=== PATIENT | male | born 1955 | race Caucasian/White ===

== ENCOUNTER 2017-11-22 07:49 | Day surgery (SDC) | payer MEDICARE, MEDICAID ==
[2017-11-21 14:46] VITALS: BMI 37.7
--- NOTE | 2017-11-22 12:15 | OP ---
DATE OF PROCEDURE: 11/22/2017 GI ENDOSCOPY NOTE SURGEON: Eric Byrne M.D. TALENT PARTNER SURGEON: None. PROCEDURES: 1. Esophagogastroduodenoscopy, diagnostic. 2. Colonoscopy with polypectomy. INDICATIONS: 1. Generalized abdominal pain. 2. Nausea. 3. Change in bowel habits. 4. No prior colonoscopy. MEDICATIONS: See anesthesia record. FINDINGS: After discussion of the risks, benefits and alternatives of the procedure, informed consen t was obtained and witnessed. Pre-endoscopic cardiopulmonary examination was satisfactory. Timeout was performed before sedation was achieved. Sedation was achieved with anesthesia assistance in the endoscopy unit. A Pentax adult upper endoscope was placed into the oropharynx and passed through the cricopharyngeus under direct visualization. The esophageal mucosa appeared normal throughout with a normal-appearing Z-line. The endoscope was then passed into the stomach. Forward and retroflexed v iews of the entire gastric mucosa were obtained. The gastric mucosa appeared normal throughout. The endoscope was then advanced through the pylorus and into the first and second portions of the duoden um, which also appeared normal. The upper endoscope was then completely withdrawn and the patient wa s repositioned. Digital rectal exam was performed which was unremarkable. A Pentax adult colonoscope was inserted in to the anus and passed forward to the cecum in the usual fashion. The cecal base was identified by t he appendiceal orifice as well as the ileocecal valve. The terminal ileum was intubated and the ilea l mucosa appeared normal. The colonoscope was then slowly withdrawn in a gradual and circumferential manner with careful examination of the entire colonic mucosa. The quality of the prep was good. Th ere is scattered diverticulosis throughout the transverse colon and left colon. In the ascending col on, there were 2 sessile polyps measuring from 3-4 mm in size. These were completely removed with ho t snare and retrieved for pathology. In the descending colon, there were 3 polyps measuring from 5-7 mm in size. These were all completely removed with hot snare and retrieved for pathology. In the s igmoid colon, there was a polyp measuring 2 mm. This was completely removed with cold snare and retr ieved for pathology. In the rectum, there was another sessile polyp measuring 1-2 mm. This was abla william with hot snare tip. Retroflexion in the rectum was unremarkable. The colonoscope was then compl etely withdrawn and the patient allowed to recover. The patient tolerated the procedure well. There were no immediate post-procedure complications. IMPRESSION: 1. Normal esophagogastroduodenoscopy. 2. Scattered diverticulosis throughout the colon. 3. Two polyps in the ascending colon, removed with hot snare and retrieved for pathology. 4. Three polyps in the descending colon, removed with hot snare and retrieved for pathology. 5. Single sigmoid colon polyp, removed with cold snare and retrieved for pathology. 6. Single small rectal polyp, ablated with hot snare tip. 7. No endoscopic of inflammatory disease. RECOMMENDATIONS: 1. Regular diet. 2. Follow up in clinic in 2-3 weeks. 3. Follow up pathology results on the colon polyps, repeat surveillance colonoscopy to be determined based on pathology results.
[2017-11-22] MEDS ORDERED: ePHEDrine/0.9% NaCl/PF SYRINGE 50 mg/10 ml ONE (14:16)
[2017-11-22] MEDS ORDERED: PROPOFOL 200 MG/20 ML VIAL ONE (14:16)
[2017-11-22] MEDS ORDERED: PHENYLEPHRINE-NS 100 MCG/ML 10 ML SYRINGE ONE (14:16)
== END 2017-11-22 13:06 ==
LOC: SDC 07:49
PROVIDERS: ATTEND Internal Medicine
PROC: 0DBK8ZX Excision of Ascending Colon, Via Natural or Artificial Opening Endoscopic, Diagnostic (ICD-10-PCS; principal; 2017-11-22)
PROC: 0DBN8ZX Excision of Sigmoid Colon, Via Natural or Artificial Opening Endoscopic, Diagnostic (ICD-10-PCS; 2017-11-22)
PROC: 0DBP8ZX Excision of Rectum, Via Natural or Artificial Opening Endoscopic, Diagnostic (ICD-10-PCS; 2017-11-22)
PROC: 0DBM8ZX Excision of Descending Colon, Via Natural or Artificial Opening Endoscopic, Diagnostic (ICD-10-PCS; 2017-11-22)
PROC: 0DJ08ZZ Inspection of Upper Intestinal Tract, Via Natural or Artificial Opening Endoscopic (ICD-10-PCS; 2017-11-22)
DX: K63.5 Polyp of colon (principal); D12.4 Benign neoplasm of descending colon; D12.5 Benign neoplasm of sigmoid colon; R10.84 Generalized abdominal pain; R11.0 Nausea; K57.30 Diverticulosis of large intestine without perforation or abscess without bleeding; E11.9 Type 2 diabetes mellitus without complications; E78.5 Hyperlipidemia, unspecified; F29 Unspecified psychosis not due to a substance or known physiological condition; G30.9 Alzheimer's disease, unspecified; F02.80 Dementia in other diseases classified elsewhere, unspecified severity, without behavioral disturbance, psychotic disturbance, mood disturbance, and anxiety; I48.0 Paroxysmal atrial fibrillation; I11.0 Hypertensive heart disease with heart failure; I50.30 Unspecified diastolic (congestive) heart failure; F31.9 Bipolar disorder, unspecified; E66.9 Obesity, unspecified; Z68.37 Body mass index [BMI] 37.0-37.9, adult; Z79.4 Long term (current) use of insulin; Z79.82 Long term (current) use of aspirin; Z79.899 Other long term (current) drug therapy; Z98.890 Other specified postprocedural states
CPT/HCPCS: 36416; 88305; J2704

== ENCOUNTER 2019-04-18 21:27 | Inpatient (IN) | payer MEDICARE, MEDICAID ==
[~2019-04-18 21:27] MED LIST: ISOVUE-370 76%-LOCM 1 ML ONE
[2019-04-18 23:22] LABS: #Lymphocytes 1.2 thou/uL (1.20-3.40); #Monocytes 0.5 thou/uL (0.11-0.59); #Neutrophils 6.4 thou/uL (1.40-6.50); %Basophils 0.2 % (0.0-1.0); %Eosinophils 0.3 % (0.0-10.0); %Lymphocytes 14.3 % (21.0-51.0); %Monocytes 5.6 % (0.0-10.0); %Neutrophils 79.6 % (42.0-75.0); Hemoglobin 12.1 g/dL (14.0-18.0); Mean Corpuscular HGB CONC 32.4 g/dL (32.0-36.0); Mean Corpuscular Hemoglobin 30.3 pg (27.0-31.0); Mean Corpuscular Volume 93.3 fL (78.0-98.0); Platelet Count 207 thou/uL (130-400); Red Blood Cell (RBC) Count 3.99 mill/uL (4.70-6.10); White Blood Cell (WBC) Count 8.1 thou/uL (4.8-10.8)
[2019-04-18] MEDS ORDERED: Promethazine HCl 25 MG/ML VIAL ONE (23:35)
[2019-04-18 23:43] LABS: ALT (SGPT) 23 U/L (8-55); AST (SGOT) 18 U/L (5-34); Alkaline Phosphatase 81 U/L (40-150); Anion Gap 16 mmol/L (10-20); BUN (Urea Nitrogen) 15 mg/dL (8.4-25.7); Bilirubin, Total 0.4 mg/dL (0.2-1.2); Calc. Creatinine Clearance 0 mL/min (70-130); Calcium 9.7 mg/dL (7.8-10.44); Carbon Dioxide 26 mmol/L (23-31); Chloride 100 mmol/L (98-107); Estimated GFR-MDRD 84; Globulin 3.2 g/dL (2.4-3.5); Glucose 203 mg/dL (80-115); Lipase 21 U/L (8-78); Potassium 4.5 mmol/L (3.5-5.1); Protein, Total 7.2 g/dL (5.8-8.1); Sodium 137 mmol/L (136-145)
[2019-04-18 23:51] LABS: Bilirubin Negative (Negative); Blood, Urine Negative (Negative); Clarity Clear (Clear); Glucose, Urine (Dipstick) 100 mg/dL (Negative); Leukocyte Negative Leu/uL (Negative); Nitrite Negative (Negative); Protein, Urine (Dipstick) Negative (Neg-Trace); Urobilinogen Normal mg/dL (Less than 2)
[2019-04-19] MEDS ORDERED: Labetalol HCl 100 MG/20 ML VIAL ONE (00:10)
[2019-04-19] MEDS ORDERED: diphenhydrAMINE 50 MG/ML VIAL ONE (01:53)
[2019-04-19] MEDS ORDERED: Haloperidol Lactate 5 MG/ML VIAL ONE (01:53)
[2019-04-19 03:29] LABS: Lactic Acid 4.8 mmol/L (0.5-2.2)
--- NOTE | 2019-04-19 04:13 | PDOC.FPRHP ---
- History of Present Illness Chief Complaint: Nausea/Vomiting History of Present Illness: 63 yo M w/hx of dementia, DM2, pAfib, HFpEF, and HTN, here from NH with complaint from [place] staff of 1 day of n/v. At the time of this H&P no staff or family was available for history and pt was unable to answer questions reliably. All hx is from chart review. Vomiting apparently begin during the afternoon of 04/18 and was treated with multiple doses of Zofran, however this was unable to control his symptoms. There is no hx of fever, abd pain, diarrhea , or constipation. In the ED, the patient was noted to be quite hypertensive and was treated with labetalol. Labs were largely unremarkable with the exception of an elevated lactate which was treated with IV fluids. PCP Dr. Shelby - Allergies/Adverse Reactions Allergies Allergy/AdvReac Type Severity Reaction Status Date / Time No Known Drug Allergies Allergy Verified 11/21/17 14:46 - Home Medications Medication Instructions Recorded Confirmed Type Atorvastatin Calcium [Lipitor] 40 mg PO HS #30 tab 06/02/15 04/19/19 Rx Lisinopril [Zestril] 20 mg PO DAILY #30 tab 06/02/15 04/19/19 Rx Donepezil HCl [Aricept] 10 mg PO HS 05/19/16 04/19/19 History Saccharomyces boulardii [Florastor] 250 mg PO DAILY #0 cap 05/23/16 04/19/19 Rx NIFEdipine [Procardia XL] 30 mg PO DAILY #0 tab 05/26/16 04/19/19 Rx Aspirin Chewable 81 mg PO DAILY 11/21/17 04/19/19 History Citalopram Hydrobromide 20 mg PO DAILY 11/21/17 04/19/19 History [Citalopram HBr] Lorazepam [Ativan] 0.5 mg PO TID PRN 11/21/17 04/19/19 History Metoprolol Tartrate [Lopressor] 25 mg PO BID 11/21/17 04/19/19 History Omeprazole 40 mg PO DAILY 11/21/17 04/19/19 History cloNIDine [Catapres] 0.1 mg PO PRN PRN 11/21/17 04/19/19 History NPH, Human Insulin Isophane 37 unit SC BID 04/19/19 04/19/19 History [Humulin N] Sertraline HCl [Zoloft] 200 mg PO DAILY 04/19/19 04/19/19 History risperiDONE [RisperDAL] 0.25 mg PO HS 04/19/19 04/19/19 History traZODone HCl [Trazodone HCl] 50 mg PO QPM 04/19/19 04/19/19 History Comments: Med Rec per clinic note sent from [place] with patient - History PMHx: pAfib DM2 HFpEF Dementia Adrenal Mass HTN HLD PSHx: None FHx: unk Social: unk - Review of Systems ROS unobtainable: due to mental status Gastrointestinal: reports: nausea, vomiting (per NH staff) - Vital signs BP: 163/99, Pulse: 96, Resp: 14, Temp: 98.1 (Oral), Pain: 0, O2 sat: 98 on 2L Oxygen - Physical Exam Constitutional: NAD, other (Appears confused. Will only answer yes/no questions. ) HEENT: normocephalic and atraumatic, EOMI, no scleral icterus, grossly normal vision, grossly normal hearing Neck: trachea midline Heart: RRR, normal S1/S2, no murmurs/rubs/gallops Lungs: CTAB, no respiratory distress Abdomen: soft, non-tender, bowel sounds present Musculoskeletal: normal tone Neurological: no focal deficit, CN II-XII intact Skin: good turgor -Skin: Ulcers on both feet Heme/Lymphatic: no unusual bruising or bleeding -Psychiatric: A&O self and place. Does not answer all questions appropriately. Often trails off in the middle of a sentence or will not answer questions asked. FMR H&P: Results - Labs Result Diagrams: 04/18/19 23:07 04/18/19 23:07 Lab results: WBC 8.1 thou/uL (4.8-10.8) 04/18/19 23:07 Hgb 12.1 g/dL (14.0-18.0) L 04/18/19 23:07 Hct 37.2 % (42.0-52.0) L 04/18/19 23:07 MCV 93.3 fL (78.0-98.0) 04/18/19 23:07 Plt Count 207 thou/uL (130-400) 04/18/19 23:07 Neutrophils % 79.6 % (42.0-75.0) H 04/18/19 23:07 Sodium 137 mmol/L (136-145) 04/18/19 23:07 Potassium 4.5 mmol/L (3.5-5.1) 04/18/19 23:07 Chloride 100 mmol/L (98-107) 04/18/19 23:07 Carbon Dioxide 26 mmol/L (23-31) 04/18/19 23:07 BUN 15 mg/dL (8.4-25.7) 04/18/19 23:07 Creatinine 0.92 mg/dL (0.7-1.3) 04/18/19 23:07 Glucose 203 mg/dL (80-115) H 04/18/19 23:07 Lactic Acid 4.8 mmol/L (0.5-2.2) H* 04/19/19 02:59 Calcium 9.7 mg/dL (7.8-10.44) 04/18/19 23:07 Total Bilirubin 0.4 mg/dL (0.2-1.2) 04/18/19 23:07 AST 18 U/L (5-34) 04/18/19 23:07 ALT 23 U/L (8-55) 04/18/19 23:07 Alkaline Phosphatase 81 U/L (40-150) 04/18/19 23:07 Serum Total Protein 7.2 g/dL (5.8-8.1) 04/18/19 23:07 Albumin 4.0 g/dL (3.4-4.8) 04/18/19 23:07 Lipase 21 U/L (8-78) 04/18/19 23:07 Urine Ketones Trace mg/dL (Negative) A 04/18/19 23:30 Urine Blood Negative (Negative) 04/18/19 23:30 Urine Nitrite Negative (Negative) 04/18/19 23:30 Ur Leukocyte Esterase Negative Miguel/uL (Negative) 04/18/19 23:30 Laboratory Tests 04/18/19 04/19/19 23:07 02:59 Lactic Acid 4.6 H* 4.8 H* - Radiology Interpretation CT scan - head Status: image reviewed by me Additional comment: No acute bleed. No midline shift. Enlarged ventricles. CT scan - abdomen Status: image reviewed by me Additional comment: No free air or fluid. GB appears normal in size. No hydronephrosis or stone noted. FMR H&P: A/P - Problem List (1) Lactic acid acidosis Current Visit: Yes Status: Acute Code(s): E87.2 - ACIDOSIS (2) Intractable nausea and vomiting Current Visit: Yes Status: Acute Code(s): R11.2 - NAUSEA WITH VOMITING, UNSPECIFIED (3) HLD (hyperlipidemia) Current Visit: Yes Status: Chronic Code(s): E78.5 - HYPERLIPIDEMIA, UNSPECIFIED (4) Normocytic anemia Current Visit: Yes Status: Chronic Code(s): D64.9 - ANEMIA, UNSPECIFIED (5) Dementia Current Visit: No Status: Chronic Code(s): F03.90 - UNSPECIFIED DEMENTIA WITHOUT BEHAVIORAL DISTURBANCE (6) Diabetes mellitus type 2 in obese Current Visit: No Status: Chronic Code(s): E11.9 - TYPE 2 DIABETES MELLITUS WITHOUT COMPLICATIONS; E66.9 - OBESITY, UNSPECIFIED (7) Hypertension Current Visit: No Status: Chronic Code(s): I10 - ESSENTIAL (PRIMARY) HYPERTENSION (8) Type 2 diabetes mellitus Current Visit: No Status: Chronic - Plan 1. Intractable nausea and vomiting - most likely related infectious gastroenteritis. Abdominal CT does not show enlarged GB or bowel obstruction. Mesenteric ischemia is within the differential however unlikely dt not complaining of pain. Radiology read currently pending. - Continue IVF and nausea control with PRN Zofran 2. Lactic acidosis - most likely related to dehydration related to n/v - continue to trend. - No current signs/symptoms of sepsis 3. DM2 - most recent med list is from 2018. Plan to call PCP in am for UTD list - [facility] accucheck. - Mild SSI - Low carb diet 4. HTN - continue home meds 5. HLD - continue home statin 6. Dementia - continue home meds - fall precautions PPX Lovenox Diet Low carb Code Full Dispo: currently stable with controlled symptoms. Good prognosis for return to baseline function at this time. Likely length of hospitalization greater than 48 hours
[2019-04-19] MEDS ORDERED: Ondansetron ODT 4 MG TAB PO PRN (05:21)
[2019-04-19] MEDS ORDERED: Ondansetron PF 4 MG/2 ML Vial IVP PRN (05:21)
[2019-04-19] MEDS ORDERED: Dextrose 5% in Water 1,000 ML IV PRN (05:21)
[2019-04-19] MEDS ORDERED: Dextrose 50% Abboject 50 ML SYRINGE SLOW IVP PRN (05:21)
[2019-04-19] MEDS ORDERED: Senokot S 8.6-50 MG TAB PO PRN (05:21)
[2019-04-19] MEDS: Lactated Ringer's 1,000 ML IV SCH ×3 (05:22→20:34)
[2019-04-19] MEDS: HumaLOG 300 UNITS/3 ML VIAL SC PRN ×2 (06:06→20:37)
[2019-04-19 06:46] VITALS: BMI 36.2
[2019-04-19 07:39] LABS: Lactic Acid 4.6 mmol/L (0.5-2.2)
--- NOTE | 2019-04-19 08:34 | CT ---
PRELIMINARY REPORT/[facility]/EMERGENCY AFTER HOURS PROCEDURE: EXAM: CT Abdomen and Pelvis With Contrast EXAM DATE/TIME: 04/19/2019 12:56 AM CLINICAL HISTORY: 63 years old, male; Acute; Patient HX: PT reports vomiting for 1-2 days, abdominal pain. PT denies di arrhea, HX kidney problems, HX uti's. PT doesn't remember if he has had a fever. TECHNIQUE: Imaging protocol: Axial computed tomography images of the abdomen and pelvis with intravenous contras t. COMPARISON: No relevant prior studies available. FINDINGS: Lungs: Mild bibasilar subsegmental atelectasis. Liver: No liver masses. Gallbladder and bile ducts: Normal appearance of the gallbladder. No ductal dilation. Pancreas: No pancreatic mass or ductal dilation. Spleen: No splenic masses. Adrenals: There is a 3.5 cm left adrenal gland high density nodule. Kidneys and ureters: No enhancing mass or hydronephrosis. Subcentimeter hypodensities superior pole o f the left kidney that is too small to characterize. Stomach and bowel: Colonic diverticulosis without evidence of acute diverticulitis. No evidence of ob struction or bowel wall thickening. Appendix: Normal appendix. Intraperitoneal space: No free air or free fluid. Vasculature: Mild atherosclerosis of the aorta without aneurysm. Lymph nodes: No lymphadenopathy. Bladder: Normal bladder. Reproductive: Normal. Bones/joints: No suspicious bone lesions. Soft tissues: There is a 1.4 cm superficial subcutaneous nodule right anterior lower chest most likely a sebaceous cyst. Tiny fat containing umbilical hernia. Small right fat containing inguinal he rnia. IMPRESSION: 1. No acute findings in the abdomen or pelvis. No bowel obstruction or appendicitis. 2. Indeterminate left adrenal gland nodule measuring 3.5 cm. No priors are available for comparison. Defer to on-site Radiologist for follow-up recommendations. Thank you for allowing us to participate in the care of your patient. Dictated and Authenticated by: Astrid Chowdhury MD 04/19/2019 1:36 AM Central Time ([place] & [place]) FINAL REPORT: CT ABDOMINAL PELVIS WITH CONTRAST: HISTORY: Vomiting. Abdominal pain. COMPARISON: CT abdomen 2016. FINDINGS: New T12 compression deformity which does extend to the posterior endplate is new from 2016. Similar s ized left adrenal mass. IMPRESSION: Findings and impression are concordant with the preliminary report. A dedicated adrenal protocol CT o r MRI in 6 months recommended. Transcribed Date/Time: 04/19/2019 8:47 AM
--- NOTE | 2019-04-19 08:47 | CT ---
PRELIMINARY REPORT/[facility]/EMERGENCY AFTER HOURS PROCEDURE: EXAM: CT Head Without Contrast EXAM DATE/TIME: 04/19/2019 2:12 AM CLINICAL HISTORY: 63 years old, male; Altered mental status/memory loss; Patient HX: PT reports vomiting for 1-2 days, abdominal pain. PT denies diarrhea, HX kidney problems, HX uti's. PT doesn't remember if he has had a fever TECHNIQUE: Imaging protocol: Axial computed tomography images of the head without contrast. COMPARISON: No relevant prior studies available. FINDINGS: Brain: No hemorrhage. No major vessel vascular territory infarct. No extra-axial fluid collection. There is diffuse cerebral atrophy with compensatory ventricular dilation. Periventricular and subcortical white matter hypodensities consistent with chronic small vessel ischemic changes. Ventricles: No hydrocephalus. Bones/joints: No acute fracture. Sinuses: Visualized sinuses are unremarkable. No fluid levels. Mastoid air cells: Visualized mastoid air cells are well aerated. No mastoid effusion. Soft tissues: Unremarkable. IMPRESSION: No acute intracranial abnormality. Thank you for allowing us to participate in the care of your patient. Dictated and Authenticated by: Astrid Chowdhury MD 04/19/2019 2:26 AM Central Time ([place] & [place]) FINAL REPORT: Emergency after-hours study CT BRAIN NONCONTRAST: DATE: 04/19/2019 Time: 2:12 AM HISTORY: 63-year-old male with nausea and vomiting. Dr. Diallo discussed the discrepancy with the preliminary report to ER charge nurse Viet Ng at 8:46 AM on 04/19/2019. The recommendation for neurosurgery consultation on a nonemergent basis, was discussed. COMPARISON: 05/19/2016 CT and 05/28/2015 MRI. FINDINGS: There is moderate dilation of the lateral ventricles, slightly greater than on the prior CT. There is moderate dilation of the third ventricle. The fourth ventricle is mildly dilated. There are diffuse, confluent hypodensities throughout the periventricular and deep cerebral white matter, (bhavani na radiata and centrum semiovale), which has worsened. At least some of this represents chronic ischemic white matter changes due to microvascular atherosclerosis. However, the MRI of 2014 demonstr ated that some of this was suspicious for transependymal migration of CSF. There is no midline shift. No mass effect. No acute intra-axial or extra-axial hemorrhage. Calvarium is intact. Disagreement with preliminary report by [facility]. IMPRESSION: Ventriculomegaly, suspicious for a communicating obstructive hydrocephalus such as normal pressure hy drocephalus. Recommend neurosurgery consultation on a nonemergent basis. Transcribed Date/Time: 04/19/2019 9:51 AM
[2019-04-19] MEDS ORDERED: Citalopram 20 MG TAB PO SCH (09:00)
[2019-04-19] MEDS ORDERED: Metoprolol Tartrate 25 MG TAB PO SCH (09:00)
[2019-04-19] MEDS ORDERED: NPH, Human Insulin Isophane 300 UNIT/3 ML VIAL SC SCH (09:00)
--- NOTE | 2019-04-19 10:04 | CT ---
CTA Angio Abd Pelvis W WO Con History: Mesenteric ischemia. Comparison: CT abdomen and pelvis same day Findings: CT angiogram of the abdomen and pelvis performed after the intravenous administration of co ntrast. 3-D rendering provided. Calcified infrahilar lymph nodes. Scarring lung bases. No pericardial effusion. The celiac trunk is p atent. Superior mesenteric artery is patent. Distal branches of the superior mesenteric artery are patent. Gastroduodenal artery is patent Renal arteries are patent. Common iliac arteries are patent. There is residual contrast within the ur inary bladder. Inferior mesenteric artery is patent. Mild diverticular disease sigmoid colon. The appendix is visualized and is normal. No retroperitoneal periaortic adenopathy. Similar appearance left adrenal mass. Impression: Patent small bowel and colonic vasculature. No CT evidence for mesenteric ischemia. No se condary findings of mesenteric ischemia. Vessels are patent, no free fluid, no mesenteric infiltration, and normal bowel wall enhancement. Please see the CT examination from earlier today for additional findings.
[2019-04-19] MEDS: NIFEdipine XL 30 MG TAB PO SCH (12:15)
[2019-04-19] MEDS: Saccharomyces boulardii 250 MG CAP PO SCH (12:15)
[2019-04-19] MEDS: Aspirin Chewable 81 MG TAB PO SCH (12:17)
[2019-04-19] MEDS: Enoxaparin Sodium 30 MG/0.3 ML SYRINGE SC SCH (12:17)
[2019-04-19] MEDS: Lisinopril 20 MG TAB PO SCH (12:17)
[2019-04-19] MEDS ORDERED: ISOVUE-370 76%-LOCM 1 ML ONE (12:36)
--- NOTE | 2019-04-19 13:29 | HP ---
I have reviewed the history and physical with Dr. Migue Car and discussed the case with him. I agree with his assessment and plan. HISTORY OF PRESENT ILLNESS: Briefly, Mr. Ford is a 63-year-old white male patient with a history of diabetes, dementia, preserved ejection fraction, heart failure, who came in from a custodial with one day of nausea and vomiting. Our initial review shows no evidence of acute abdomen, but he does have a persistent lactic acidosis. PHYSICAL EXAMINATION: VITAL SIGNS: Stable. EARS, NOSE, AND THROAT: No erythema, no exudate. NECK: Supple. CARDIAC: Heart rhythm, regular. No gallop or murmur noted. LUNGS: Clear without rales or wheezes. ABDOMEN: Really unremarkable. He is nontender. There is no distention. There is no guarding, rebound, or rigidity. NEUROLOGIC: No focal deficits. LABORATORY DATA: CBC; white count is 8100, hemoglobin 12.1, hematocrit 37.2. His MCV is 93. Chemistries; sodium 137, potassium 4.5, chloride 100, bicarb 26, anion gap 16, BUN 15, creatinine 0.9, glucose is 203, and his lactic acid is 4.8. Liver enzymes are normal. ASSESSMENT: Lactic acidosis, exact source not yet clear. PLAN: We will go ahead and continue to hydrate the patient. We will perform a CTA of the mesenteric vessels and proceed. Job ID: [id number]
[2019-04-19] MEDS ORDERED: Sodium Chloride 0.9% 0 ML ONE (14:50)
[2019-04-19 16:27] LABS: Lactic Acid 3.9 mmol/L (0.5-2.2)
[2019-04-19] MEDS: Calcium Carbonate 500 MG TAB PO SCH (18:03)
[2019-04-19] MEDS: risperiDONE 0.25 MG TAB PO SCH (20:36)
[2019-04-19] MEDS: Atorvastatin Calcium 40 MG TAB PO SCH (20:36)
[2019-04-19] MEDS: Docusate 100 MG CAP PO SCH (20:36)
[2019-04-19] MEDS: Gabapentin 300 MG CAP PO SCH (20:37)
[2019-04-19] MEDS: Divalproex Sodium DR 500 MG TAB PO SCH (20:37)
[2019-04-19] MEDS: Acetaminophen 325 MG TAB PO PRN (20:37)
[2019-04-19] MEDS ORDERED: traZODone HCl 50 MG TAB PO SCH (21:00)
[2019-04-19] MEDS ORDERED: Donepezil HCl 10 MG TAB PO SCH (21:00)
[2019-04-20] MEDS ORDERED: Lorazepam 2 MG/ML VIAL SLOW IVP SCH (00:45)
[2019-04-20] MEDS: Lactated Ringer's 1,000 ML IV SCH ×6 (05:11→23:58)
[2019-04-20] MEDS: HumaLOG 300 UNITS/3 ML VIAL SC PRN ×3 (05:15→17:54)
[2019-04-20 06:46] LABS: #Basophils 0.1 thou/uL (0.0-0.2); #Eosinphils 0.2 thou/uL (0.0-0.7); #Lymphocytes 2.2 thou/uL (1.20-3.40); #Monocytes 0.6 thou/uL (0.11-0.59); #Neutrophils 3.3 thou/uL (1.40-6.50); %Basophils 0.8 % (0.0-1.0); %Eosinophils 3.4 % (0.0-10.0); %Lymphocytes 34.9 % (21.0-51.0); %Monocytes 8.9 % (0.0-10.0); Hemoglobin 11.7 g/dL (14.0-18.0); Mean Corpuscular HGB CONC 32.5 g/dL (32.0-36.0); Mean Corpuscular Hemoglobin 30.3 pg (27.0-31.0); Mean Corpuscular Volume 93.1 fL (78.0-98.0); Platelet Count 233 thou/uL (130-400); RBC Distribution Width 14.2 % (11.5-14.5); Red Blood Cell (RBC) Count 3.87 mill/uL (4.70-6.10); White Blood Cell (WBC) Count 6.3 thou/uL (4.8-10.8)
[2019-04-20 07:17] LABS: Anion Gap 14 mmol/L (10-20); BUN (Urea Nitrogen) 18 mg/dL (8.4-25.7); Calc. Creatinine Clearance 134 mL/min (70-130); Calcium 9.6 mg/dL (7.8-10.44); Carbon Dioxide 27 mmol/L (23-31); Chloride 102 mmol/L (98-107); Estimated GFR-MDRD 77; Glucose 202 mg/dL (80-115); Potassium 4.2 mmol/L (3.5-5.1); Sodium 139 mmol/L (136-145)
[2019-04-20] MEDS ORDERED: Lactated Ringer's 1,000 ML IV SCH (07:24)
--- NOTE | 2019-04-20 07:30 | PDOC.FM ---
- Subjective Subjective: NAEO. Patient reports that he feels well this AM. Denies any chest or abdominal pain, SOB, N/V/D. - Objective MAR Reviewed: Yes Vital Signs & Weight: Vital Signs (12 hours) Temp Pulse Resp BP Pulse Ox 04/20/19 04:00 98.2 F 73 18 128/83 92 L 04/20/19 00:00 98.5 F 99 20 119/69 93 L 04/19/19 20:00 97.9 F 87 18 162/97 H 94 L Weight Weight 121.109 kg I&O: 04/19/19 04/20/19 04/21/19 06:59 06:59 06:59 Intake Total 1265 Balance 1265 Result Diagrams: 04/20/19 06:28 04/20/19 06:28 Phys Exam - Physical Examination Constitutional: NAD HEENT: moist MMs seborrheic dermatitis in glabellar region of face Neck: supple, full ROM Respiratory: no wheezing, no rales, no rhonchi, clear to auscultation bilateral Cardiovascular: RRR, no significant murmur Gastrointestinal: soft, non-tender, no distention, positive bowel sounds Musculoskeletal: edema present Neurological: non-focal, moves all 4 limbs Psychiatric: normal affect, A&O x 3 Skin: normal turgor, cap refill <2 seconds Deviation from normal: chronic venous stasis changes in B/L LEs Dx/Plan (1) Normal pressure hydrocephalus Code(s): G91.2 - (IDIOPATHIC) NORMAL PRESSURE HYDROCEPHALUS Status: Chronic (2) Bipolar 1 disorder Code(s): F31.9 - BIPOLAR DISORDER, UNSPECIFIED Status: Chronic (3) Intractable nausea and vomiting Code(s): R11.2 - NAUSEA WITH VOMITING, UNSPECIFIED Status: Resolved (4) Lactic acid acidosis Code(s): E87.2 - ACIDOSIS Status: Acute (5) HLD (hyperlipidemia) Code(s): E78.5 - HYPERLIPIDEMIA, UNSPECIFIED Status: Chronic (6) Normocytic anemia Code(s): D64.9 - ANEMIA, UNSPECIFIED Status: Chronic (7) Dementia Code(s): F03.90 - UNSPECIFIED DEMENTIA WITHOUT BEHAVIORAL DISTURBANCE Status: Chronic (8) Diabetes mellitus type 2 in obese Code(s): E11.9 - TYPE 2 DIABETES MELLITUS WITHOUT COMPLICATIONS; E66.9 - OBESITY , UNSPECIFIED Status: Chronic (9) Hypertension Code(s): I10 - ESSENTIAL (PRIMARY) HYPERTENSION Status: Chronic - Plan Plan: Lactic acidosis - Etiology unclear at this point as low suspicion for an acute infection as WBCs & vitals have been WNLs, no overt possible drug-induced reaction on review of meds and mesenteric ischemia ruled out yesterday with an abdominal CTA. ABG, HIV, RPR, Hep C, CPK, and procal pending for this AM. Will also consult nephrology for any additional recommendations. Another possibility is potential malignancy as a 3.5cm hyperintensity nodule was noted on his abd/pelvic CT and was documented in prior scans as well. MRI in 2018 could not r/o malignancy and recommended a CT w/ & w/o contrast. - Will increase IVF rate to 175mL/hr and continue to trend. DM2 - Will call [facility] today to get UTD med list from [facility] as PCP was unsure of current meds at this time. - [facility] accuchecks. - Mild SSI. - Low carb diet. HTN - Will continue home meds HLD - Will continue home statin Dementia - continue home meds - fall precautions Bipolar Disorder - Continue home meds Normal pressure hydrocephalus - Reportedly chronic per patient's PCP. CT head this admission did show slight progression compared to 2016 scan. - Touched base with NS yesterday who recommended close outpatient follow-up. Intractable nausea and vomiting, resolved - PRN Zofran should symptoms return. DVT PPx: Lovenox Diet: Low carb, Code: Full Dispo:
[2019-04-20] MEDS: Divalproex Sodium DR 500 MG TAB PO SCH ×2 (08:26→20:36)
[2019-04-20] MEDS: Lisinopril 20 MG TAB PO SCH (08:26)
[2019-04-20] MEDS: NIFEdipine XL 30 MG TAB PO SCH (08:27)
[2019-04-20] MEDS: Saccharomyces boulardii 250 MG CAP PO SCH (08:27)
[2019-04-20] MEDS: Calcium Carbonate 500 MG TAB PO SCH ×2 (08:28→16:45)
[2019-04-20] MEDS: Aspirin Chewable 81 MG TAB PO SCH (08:28)
[2019-04-20] MEDS: Gabapentin 300 MG CAP PO SCH ×2 (08:29→20:37)
[2019-04-20] MEDS: Enoxaparin Sodium 30 MG/0.3 ML SYRINGE SC SCH (08:29)
[2019-04-20] MEDS: Docusate 100 MG CAP PO SCH ×2 (08:29→20:37)
[2019-04-20 08:57] LABS: Anion Gap 12 mmol/L (10-20); BUN (Urea Nitrogen) 18 mg/dL (8.4-25.7); CK (CPK) 166 U/L (30-200); Calc. Creatinine Clearance 137 mL/min (70-130); Calcium 9.4 mg/dL (7.8-10.44); Carbon Dioxide 29 mmol/L (23-31); Chloride 103 mmol/L (98-107); Estimated GFR-MDRD 79; Glucose 200 mg/dL (80-115); Potassium 4.3 mmol/L (3.5-5.1); Sodium 140 mmol/L (136-145)
[2019-04-20] MEDS ORDERED: Metoprolol Tartrate 25 MG TAB PO SCH (09:00)
[2019-04-20 09:03] LABS: Actual Bicarbonate (HCO3a) 26.7 mEq/L (22-28); Base Excess (BEa) 2.2 mEq/L (-2.0 to +3.0); CO2 Tension 41.3 mmHg (35.0-45.0); Hemoglobin (Hb) 11.5 g/dL (14.0-18.0); Potassium - ABG Lab 3.91 mmol/L (3.70-5.30); pH, Arterial 7.43 (7.35-7.45)
[2019-04-20 09:05] LABS: ALV-art Gradient 30.105 (0-20); Puncture Site LRA
[2019-04-20 09:17] LABS: HIV (1/2) Antibody/Antigen Non-Reactive (NonReactive); Syphilis Antibody Nonreactive (Nonreactive); Syphilis Antibody Index 0.04 S/CO (<1.00 Non-Reactive)
[2019-04-20] MEDS ORDERED: Cosyntropin 250 MCG VIAL SLOW IVP SCH (11:45)
--- NOTE | 2019-04-20 11:52 | PRG ---
DATE OF SERVICE: 04/20/2019 Mr. Ford is resting quietly in bed and he is in no acute distress. He has several interesting findings include what appears to be a type B lactic acidosis. He also has a left adrenal mass, which we are currently investigating. It has been investigated in the past for being a darshana and studies were negative. We will also check some studies regarding the possibility of Dell's and hyperaldosteronism. We will talk with Radiology about further imaging to determine whether this is a malignant mass or an adenoma. The lactic acidosis is still being looked at and we will possibly get an opinion from our renal colleagues. Job ID: [id number]
[2019-04-20 14:17] LABS: Lactic Acid 3.6 mmol/L (0.5-2.2)
[2019-04-20] MEDS: hydrALAZINE 20 MG/ML VIAL SLOW IVP PRN (19:59)
[2019-04-20] MEDS: risperiDONE 0.25 MG TAB PO SCH (20:37)
[2019-04-20] MEDS: Atorvastatin Calcium 40 MG TAB PO SCH (20:37)
[2019-04-20] MEDS: Ketoconazole 2% Cream 15 gm Tube TOP SCH (20:38)
[2019-04-20] MEDS: Lorazepam 2 MG/ML VIAL SLOW IVP PRN (21:22)
[2019-04-20] MEDS ORDERED: Dexamethasone 1 MG TAB PO SCH (23:00)
[2019-04-20] MEDS: Acetaminophen 325 MG TAB PO PRN (23:58)
[2019-04-21] MEDS: Lorazepam 2 MG/ML VIAL SLOW IVP PRN ×2 (01:42→15:20)
[2019-04-21] MEDS: hydrALAZINE 20 MG/ML VIAL SLOW IVP PRN (04:42)
[2019-04-21] MEDS: Lactated Ringer's 1,000 ML IV SCH ×3 (04:42→20:54)
[2019-04-21] MEDS: Acetaminophen 325 MG TAB PO PRN (04:44)
[2019-04-21 05:27] LABS: Bilirubin Negative (Negative); Blood, Urine Negative (Negative); Glucose, Urine (Dipstick) Negative (Negative); Leukocyte Trace (Negative); Nitrite Positive (Negative); Protein, Urine (Dipstick) Negative (Neg-Trace); Urobilinogen 0.2 mg/dL (Less than 2)
[2019-04-21] MEDS: HumaLOG 300 UNITS/3 ML VIAL SC PRN ×3 (05:27→21:02)
[2019-04-21 05:28] LABS: Clarity Clear (Clear)
[2019-04-21 05:33] LABS: Bacteria/HPF 1+ HPF (None Seen); RBC/HPF None Seen HPF (0-3); Squamous Epithelial None Seen HPF (0-3)
[2019-04-21 05:48] LABS: Hemoglobin A1c 8.3 % (4.0-6.0)
[2019-04-21 05:59] LABS: Lactic Acid 3.9 mmol/L (0.5-2.2)
[2019-04-21 06:02] LABS: Anion Gap 17 mmol/L (10-20); BUN (Urea Nitrogen) 16 mg/dL (8.4-25.7); Calc. Creatinine Clearance 124 mL/min (70-130); Calcium 8.8 mg/dL (7.8-10.44); Carbon Dioxide 22 mmol/L (23-31); Chloride 99 mmol/L (98-107); Estimated GFR-MDRD 70; Glucose 212 mg/dL (80-115); Potassium 3.8 mmol/L (3.5-5.1); Sodium 134 mmol/L (136-145)
[2019-04-21 06:19] LABS: #Monocytes 1.1 thou/uL (0.11-0.59); #Neutrophils 12.6 thou/uL (1.40-6.50); %Basophils 0.1 % (0.0-1.0); %Eosinophils 0.1 % (0.0-10.0); %Lymphocytes 6.6 % (21.0-51.0); %Monocytes 7.4 % (0.0-10.0); %Neutrophils 85.8 % (42.0-75.0); Band 13 % (5-11); Hemoglobin 11.5 g/dL (14.0-18.0); Lymphocytes 11 % (21-51); MDiff Complete? YES; Mean Corpuscular HGB CONC 32.6 g/dL (32.0-36.0); Mean Corpuscular Hemoglobin 29.7 pg (27.0-31.0); Mean Corpuscular Volume 91.2 fL (78.0-98.0); Mean Platelet Volume 7.8 fL (7.4-10.4); Monocytes 5 % (0-10); Neutrophil 71 % (42-75); Platelet Count 155 thou/uL (130-400); Red Blood Cell (RBC) Count 3.85 mill/uL (4.70-6.10); White Blood Cell (WBC) Count 14.7 thou/uL (4.8-10.8)
--- NOTE | 2019-04-21 06:21 | PDOC.FM ---
- Subjective Subjective: Patient fevered up to 100.6F overnight and had significantly elevated BPs requiring PRN hydralazine. UA significant for a UTI. Urine & blood cultures also ordered overnight. Is much less alert and in and out of sleep on exam this AM. Reported he had pain but could not state where. Nursing staff also report he is much less alert and very weak. Nurses also deny any issues with him emptying his bladder. - Objective MAR Reviewed: Yes Vital Signs & Weight: Vital Signs (12 hours) Temp Pulse Resp BP BP Pulse Ox 04/21/19 05:33 108 H 127/73 04/21/19 04:42 113 H 173/101 H 04/21/19 04:17 100.5 F H 113 H 22 H 173/101 H 91 L 04/21/19 02:47 98.1 F 104 H 145/77 H 92 L 04/21/19 01:46 18 121/83 92 L 04/21/19 00:14 100.6 F H 110 H 20 189/74 H 90 L 04/20/19 20:48 105 H 180/92 H 04/20/19 19:59 105 H 185/107 H 04/20/19 19:47 105 H 185/107 H 93 L 04/20/19 19:19 98.3 F 101 H 16 213/95 H 92 L Weight Admit Weight 121.109 kg Weight 121.109 kg I&O: 04/19/19 04/20/19 04/21/19 06:59 06:59 06:59 Intake Total 1265 3487 Output Total 250 Balance 1265 3237 Result Diagrams: 04/21/19 05:05 04/21/19 05:05 Phys Exam - Physical Examination Constitutional: NAD HEENT: moist MMs seborrheic dermatitis in glabellar region of face noted Neck: supple, full ROM Respiratory: no wheezing, no rales, no rhonchi decreased breath sounds in B/L bases Cardiovascular: RRR, no significant murmur Gastrointestinal: soft, non-tender, positive bowel sounds Musculoskeletal: edema present Neurological: non-focal, moves all 4 limbs Psychiatric: normal affect Deviation from normal: Oriented to person & place Skin: no rash Deviation from normal: chronic venous stasis changes in B/L LEs Dx/Plan (1) Normal pressure hydrocephalus Code(s): G91.2 - (IDIOPATHIC) NORMAL PRESSURE HYDROCEPHALUS Status: Chronic (2) Bipolar 1 disorder Code(s): F31.9 - BIPOLAR DISORDER, UNSPECIFIED Status: Chronic (3) Intractable nausea and vomiting Code(s): R11.2 - NAUSEA WITH VOMITING, UNSPECIFIED Status: Resolved (4) Lactic acid acidosis Code(s): E87.2 - ACIDOSIS Status: Acute (5) HLD (hyperlipidemia) Code(s): E78.5 - HYPERLIPIDEMIA, UNSPECIFIED Status: Chronic (6) Normocytic anemia Code(s): D64.9 - ANEMIA, UNSPECIFIED Status: Chronic (7) Dementia Code(s): F03.90 - UNSPECIFIED DEMENTIA WITHOUT BEHAVIORAL DISTURBANCE Status: Chronic (8) Diabetes mellitus type 2 in obese Code(s): E11.9 - TYPE 2 DIABETES MELLITUS WITHOUT COMPLICATIONS; E66.9 - OBESITY , UNSPECIFIED Status: Chronic (9) Hypertension Code(s): I10 - ESSENTIAL (PRIMARY) HYPERTENSION Status: Chronic (10) UTI (urinary tract infection) Status: Acute (11) Adrenal incidentaloma Code(s): E27.8 - OTHER SPECIFIED DISORDERS OF ADRENAL GLAND Status: Acute - Plan Plan: Lactic acidosis - Etiology still unclear at this point. Patient did develop a UTI overnight which will be treated as described below. However, lactate stable this AM at 3.9. ABG, HIV, RPR, and procal negative yesterday. Hep C labs pending. Another possibility is potential malignancy as a 3.5cm hyperintensity nodule was noted on his abd/pelvic CT that was documented in prior scans as well. MR w/ & w/o contrast pending to assess for malignancy per radiology's recs. Pheo studies done in 2016 but AM cortisol pending for 0800 and serum aldosterone and renin activity levels to assess whether or not adrenal nodule is functional or not. Will consider rescreening for pheo due to hypertensive episode overnight. - Will continue IVFs w/ LR @ 125mL/hr and continue to trend lactate QD. - AM procal pending for this AM as there is now a concern for sepsis. Stat CXR also ordered as O2 sats declined overnight and patient was noted to have atelectasis on initial admission imaging so it at increased risk of PNA. UTI - Patient fevered overnight and UA significant for a UTI with nitrites, LE, bacteria and WBCs noted. blood & urine cultures pending but will start rocephin this AM and continue pending culture sensitivities. DM2 - Patient not on any home meds for DMII. Will consider starting low dose LYNETTE insulin for better glycemic control in setting of acute infection. - ACHS accuchecks. - Mild SSI. - Low carb diet. HTN - Will continue home meds w/ PRN hydralazine HLD - Will continue home statin Dementia - continue home meds - fall precautions - Suspect may not be only due to AD as patient has a noted shuffling gait and tremor noted on exam. May consider a neuro consult to assess for possible PD as a potential source of his dementia. Bipolar Disorder - Continue home meds Normal pressure hydrocephalus - Reportedly chronic per patient's PCP. CT head this admission did show slight progression compared to 2016 scan. - Touched base with NS yesterday who recommended close outpatient follow-up. Intractable nausea and vomiting, resolved - PRN Zofran should symptoms return. Physical deconditioning: - Will get PT & OT on board DVT PPx: Lovenox Diet: Low carb, HH IVFs: LR @ 125mL/hr Abx: Rocephin (04/21) Code: Full Dispo: Will start abx for UTI and continue to trend lactate QD.
--- NOTE | 2019-04-21 07:48 | CON ---
DATE OF CONSULTATION: 04/20/2019 CONSULTING PHYSICIAN: Jean-Paul Orozco MD REASON FOR CONSULTATION: Lactic acidosis, reason for admission; nausea and vomiting. HISTORY OF PRESENT ILLNESS: This is a 63-year-old male with history of type 2 diabetes, atrial fibrillation, dementia, and hypertension, came to the hospital with above complaints and was found to have lactic acidosis around 6.0. Initial lactate was 4.6, then up to 6.0. Nephrology was consulted. He does not have any metabolic acidosis in the BMP. He does have dementia, not able to give a good history. Most of the history was obtained from review of the records. PAST MEDICAL HISTORY: Positive for atrial fibrillation, type 2 diabetes, CHF, dementia, hypertension, and hyperlipidemia. PAST SURGICAL HISTORY: None. HOME MEDICATIONS: 1. Atorvastatin. 2. Lisinopril. 3. Donepezil. 4. Procardia. 5. Aspirin. 6. Citalopram. 7. Lorazepam. 8. Metoprolol. 9. Omeprazole. 10. Clonidine. 11. NPH insulin. 12. Sertraline. 13. Risperdal. 14. Trazodone. ALLERGIES: NO KNOWN DRUG ALLERGIES. SOCIAL HISTORY: No smoking, alcohol, or illicit drug abuse. FAMILY HISTORY: No history of kidney disease. REVIEW OF SYSTEMS: Could not be obtained due to dementia and not able to participate. PHYSICAL EXAMINATION: GENERAL: This is a demented male, in no apparent distress. VITAL SIGNS: Temperature 98.3, pulse 80, respiratory rate 16, and blood pressure 149/83. HEENT: Atraumatic, normocephalic. NECK: Supple. CVS: S1 and S2 heard. RESPIRATORY: Clear. GI: Abdomen is soft. MUSCULOSKELETAL: No edema. DERMATOLOGIC: No skin rash. NEUROLOGIC: Dementia present. LABORATORY DATA: Hemoglobin 11.7. Potassium is 4.3, bicarb is 29, BUN is 18, and creatinine is 0.9. PH is 7.43. ASSESSMENT AND PLAN: Lactic acidosis with no signs of acidosis on ABG or in the BMP. I agree with ruling out mesenteric ischemia. Apparently, he had a CTA with no signs of mesenteric ischemia. Agree with hydration for now. Continue hydration and avoid medicines like metformin. We will continue to follow. Given his dementia, no indication for further workup rule out any type B lactic acidosis. We will continue to follow. Continue hydration and monitor lactate level. We will follow. Thank you for the consult. Job ID: [id number]
[2019-04-21] MEDS: NIFEdipine XL 30 MG TAB PO SCH (08:19)
[2019-04-21] MEDS: Divalproex Sodium DR 500 MG TAB PO SCH ×2 (08:19→20:56)
[2019-04-21] MEDS: Lisinopril 20 MG TAB PO SCH (08:20)
[2019-04-21] MEDS: Aspirin Chewable 81 MG TAB PO SCH (08:20)
[2019-04-21] MEDS: cefTRIAXone\\ROCEPHIN 1 GM in Sodium Chloride 0.9% 100 ML IVPB SCH (08:21)
[2019-04-21] MEDS: Gabapentin 300 MG CAP PO SCH ×2 (08:21→20:55)
[2019-04-21] MEDS: Calcium Carbonate 500 MG TAB PO SCH ×2 (08:21→17:20)
[2019-04-21] MEDS: Saccharomyces boulardii 250 MG CAP PO SCH (08:21)
[2019-04-21] MEDS: Docusate 100 MG CAP PO SCH ×2 (08:21→20:55)
[2019-04-21] MEDS: Enoxaparin Sodium 30 MG/0.3 ML SYRINGE SC SCH (08:22)
--- NOTE | 2019-04-21 09:02 | RAD ---
RADIOGRAPH CHEST 1 VIEW: DATE: 04/21/2019 HISTORY: 63-year-old male with dyspnea. FINDINGS: There is no airspace density, pulmonary edema, or pneumothorax. The lateral costophrenic angles are n ot effaced. IMPRESSION: No acute pulmonary findings.
--- NOTE | 2019-04-21 12:31 | PRG ---
DATE OF SERVICE: 04/21/2019 During the night, Mr. Ford developed fever and a high white count. He was also noted to have an abnormal urinalysis and is currently on antibiotics. His current vital signs are stable, and he is currently afebrile. His blood pressure is 131/74. His lactic acid is actually trended down slightly to 3.9. His white count had risen from a normal of 6300 to 14,700. We will continue with antibiotic coverage, pending results of the urine culture. Job ID: [id number]
[2019-04-21] MEDS: Ketoconazole 2% Cream 15 gm Tube TOP SCH ×2 (13:37→20:56)
--- NOTE | 2019-04-21 14:24 | PRG ---
DATE OF SERVICE: 04/21/2019 SUBJECTIVE: Patient was seen and examined at bedside and overnight events noted. Patient denies any shortness of breath or chest pain or palpitation. No history of nausea or vomiting or diarrhea or fever or chills or cramps. OBJECTIVE: GENERAL: This is a demented male in no acute distress. VITAL SIGNS: Temperature 99.0. Heart rate 92. Respiratory rate 20. Blood pressure 133/75. HEENT: Atraumatic, normocephalic. Oral mucosa is moist NECK: Supple. CARDIOVASCULAR: S1, S2 heard. Rate and rhythm regular. RESPIRATORY: Clear to auscultation. GASTROINTESTINAL: Abdomen is soft. MUSCULOSKELETAL: No tenderness. No edema. DERMATOLOGIC: No skin rash. NEUROLOGIC: Dementia present. PSYCHIATRIC: Mood and affect normal. LABORATORY DATA: Lactate is 3.9, which is close to his baseline. His last lactate was 3.3 to 3.6. Potassium 3.8. ASSESSMENT AND PLAN: 1. Lactic acidosis, which is back to baseline. The patient does have chronic lactic acidosis. 2. History of dementia. 3. Edema, controlled. 4. Hypertension. Rule out infection and continue antibiotics. Continue hydration as tolerated. We will follow. Job ID: [id number]
--- NOTE | 2019-04-21 16:35 | MRI ---
MRI OF THE ABDOMEN WITHOUT AND WITH CONTRAST: 04/21/19 COMPARISON: CT abdomen/pelvis 04/19/19. CT abdomen/pelvis 05/19/16. MRI of the abdomen 06/12/16. HISTORY: Left adrenal mass seen on prior examination. TECHNIQUE: Multiplanar and multisequence MRI images were obtained of the abdomen without and with IV contrast. FINDINGS: There is a well circumscribed left adrenal mass measuring 3.5 cm in greatest dimension. This demonstr ates homogeneous enhancement without significant high T2 signal. No loss of signal is seen on out-of- phase images within the mass. The liver, gallbladder, right adrenal gland, right kidney, spleen, and pancreas are unremarkable. There is a well circumscribed focus of T2 signal in the left kidney measu ring 1.1 cm in size which represents a simple cyst. No abdominal adenopathy is seen. No marrow signal abnormality is present. IMPRESSION: Indeterminate left adrenal mass. This may have slightly enlarged compared to the exams from 2016. Th is does not demonstrate significant loss to suggest a fat containing adrenal adenoma. A lipid poor ad enoma could also produce a round mass. In order to determine if a lipid poor adenoma is present, a CT per adrenal mass protocol would be necessary with washout images. A follow-up CT in six months is re commended to ensure stability. Alternatively, a PET CT could be performed to evaluate for hypermetabo lic activity in the left adrenal gland. POS: C
[2019-04-21] MEDS: Atorvastatin Calcium 40 MG TAB PO SCH (20:55)
[2019-04-21] MEDS: risperiDONE 0.25 MG TAB PO SCH (20:55)
[2019-04-22] MEDS: Lorazepam 2 MG/ML VIAL SLOW IVP PRN (01:06)
[2019-04-22] MEDS: Lactated Ringer's 1,000 ML IV SCH ×2 (01:42→05:59)
[2019-04-22] MEDS: HumaLOG 300 UNITS/3 ML VIAL SC PRN ×2 (05:57→11:56)
[2019-04-22 06:43] LABS: #Eosinphils 0.1 thou/uL (0.0-0.7); #Lymphocytes 1.4 thou/uL (1.20-3.40); #Monocytes 0.8 thou/uL (0.11-0.59); #Neutrophils 7.9 thou/uL (1.40-6.50); %Basophils 0.2 % (0.0-1.0); %Eosinophils 0.6 % (0.0-10.0); %Lymphocytes 13.6 % (21.0-51.0); %Monocytes 7.8 % (0.0-10.0); %Neutrophils 77.8 % (42.0-75.0); Hemoglobin 10.4 g/dL (14.0-18.0); Mean Corpuscular HGB CONC 31.7 g/dL (32.0-36.0); Mean Corpuscular Hemoglobin 29.3 pg (27.0-31.0); Mean Corpuscular Volume 92.4 fL (78.0-98.0); Mean Platelet Volume 7.2 fL (7.4-10.4); Platelet Count 201 thou/uL (130-400); RBC Distribution Width 14.2 % (11.5-14.5); Red Blood Cell (RBC) Count 3.54 mill/uL (4.70-6.10); White Blood Cell (WBC) Count 10.2 thou/uL (4.8-10.8)
[2019-04-22] MEDS ORDERED: Enoxaparin Sodium 30 MG/0.3 ML SYRINGE SC SCH (06:54)
[2019-04-22 06:59] LABS: Lactic Acid 1.7 mmol/L (0.5-2.2)
--- NOTE | 2019-04-22 07:02 | PDOC.FM ---
- Subjective Subjective: NAEO. Patient reports he feels much better this AM but states he did feel short of breath overnight. Otherwise, no fever/chills, cough, chest pain or N/V/D. - Objective MAR Reviewed: Yes Vital Signs & Weight: Vital Signs (12 hours) Temp Pulse Resp BP Pulse Ox 04/21/19 19:34 98.7 F 89 20 129/79 91 L Weight Admit Weight 121.109 kg Weight 121.109 kg I&O: 04/21/19 04/22/19 04/23/19 06:59 06:59 06:59 Intake Total 3487 3303 Output Total 250 Balance 3237 3303 Result Diagrams: 04/22/19 06:13 04/22/19 07:44 Phys Exam - Physical Examination Constitutional: NAD HEENT: moist MMs Neck: supple, full ROM Respiratory: no wheezing, no rales, no rhonchi, clear to auscultation bilateral Cardiovascular: RRR, no significant murmur Psychiatric: normal affect Deviation from normal: oriented to person at baseline Deviation from normal: chronic venous stasis changes in B/L LEs Dx/Plan (1) Normal pressure hydrocephalus Code(s): G91.2 - (IDIOPATHIC) NORMAL PRESSURE HYDROCEPHALUS Status: Chronic (2) Bipolar 1 disorder Code(s): F31.9 - BIPOLAR DISORDER, UNSPECIFIED Status: Chronic (3) Intractable nausea and vomiting Code(s): R11.2 - NAUSEA WITH VOMITING, UNSPECIFIED Status: Resolved (4) Lactic acid acidosis Code(s): E87.2 - ACIDOSIS Status: Acute (5) HLD (hyperlipidemia) Code(s): E78.5 - HYPERLIPIDEMIA, UNSPECIFIED Status: Chronic (6) Normocytic anemia Code(s): D64.9 - ANEMIA, UNSPECIFIED Status: Chronic (7) Dementia Code(s): F03.90 - UNSPECIFIED DEMENTIA WITHOUT BEHAVIORAL DISTURBANCE Status: Chronic (8) Diabetes mellitus type 2 in obese Code(s): E11.9 - TYPE 2 DIABETES MELLITUS WITHOUT COMPLICATIONS; E66.9 - OBESITY , UNSPECIFIED Status: Chronic (9) Hypertension Code(s): I10 - ESSENTIAL (PRIMARY) HYPERTENSION Status: Chronic (10) UTI (urinary tract infection) Status: Acute (11) Adrenal incidentaloma Code(s): E27.8 - OTHER SPECIFIED DISORDERS OF ADRENAL GLAND Status: Acute - Plan Plan: Lactic acidosis - Etiology still unclear at this point but lactate down to 1.7 this AM. Hep C labs and thiamine levels pending. Another possibility is potential malignancy as a 3.5cm hyperintensity nodule was noted on his abd/pelvic CT that was documented in prior scans as well. MRA w/ & w/o contrast yesterday done and noted could not determine potential for malignancy based on this and recommended adrenal CT protocol OR PET scan to further assess for this. Pheo studies done in 2016 & dex suppression test WNLs. Serum aldosterone and renin activity levels pending to assess whether or not adrenal nodule is functional or not. Thiamine levels also pending to r/o thiamine deficiency. - Will consider de-escalating IVFs but will continue to trend lactate QD. Acute hypoxic respiratory failure - Patient desatting to 90-93% overnight and reported SOB. Has also been tachycardic. CXR negative for effusions and/or consolidation yesterday so concern for possible PE 2/2 poor mobility in setting of acute infection during his hospital stay. D-dimer pending for this AM. UTI - Patient fevered overnight and UA significant for a UTI with nitrites, LE, bacteria and WBCs noted. Blood & urine cultures still pending so will continue IV rocephin pending culture sensitivities. DM2 - Patient not on any home meds for DMII. Will consider starting low dose LYNETTE insulin for better glycemic control in setting of acute infection. - ACHS accuchecks. - Mild SSI. - Low carb diet. HTN - Will continue home meds w/ PRN hydralazine HLD - Will continue home statin Dementia - continue home meds - fall precautions - Suspect may not be only due to AD as patient has a noted shuffling gait and tremor noted on exam. However, is on a few meds that could have induced this as well. Likely needs to f/u with neuro as an outpatient to further investigate this. Bipolar Disorder - Continue home meds Normal pressure hydrocephalus - Reportedly chronic per patient's PCP. CT head this admission did show slight progression compared to 2016 scan. - Touched base with Neurosurgery since admission who recommended close outpatient follow-up. Intractable nausea and vomiting, resolved - PRN Zofran should symptoms return. Physical deconditioning: - PT & OT on board DVT PPx: Lovenox Diet: Low carb, HH IVFs: LR @ 125mL/hr Abx: Rocephin (04/21) Code: Full Dispo: Will continue abx for UTI pending culture sensitivities. Addendum - Attending - Attending Attestation Date/Time: 04/22/19 4203 I personally evaluated the patient and discussed the management with Dr. Arechiga. I agree with the History, Examination, Assessment and Plan documented above with any addition or exceptions noted below. Patient here for hyperemesis and new onset UTI. Cultures and sensitivities pending. He continues on Rocephin and has downtrending PCT. He has no further nausea/vomiting. He did have some lower O2 sats overnight that are likely due to noticable shallow breathing on exam. Will encourage ambulation, chair sitting , and deep inspiration. No concern for VTE at this time. His adrenal workup will continue outpatient if desired. He is a possible discharge back to his facility later today if continues to feel well with empiric abx.
[2019-04-22] MEDS: cefTRIAXone\\ROCEPHIN 1 GM in Sodium Chloride 0.9% 100 ML IVPB SCH (07:56)
[2019-04-22] MEDS: Lisinopril 20 MG TAB PO SCH (08:06)
[2019-04-22] MEDS: NIFEdipine XL 30 MG TAB PO SCH (08:06)
[2019-04-22] MEDS: Aspirin Chewable 81 MG TAB PO SCH (08:07)
[2019-04-22] MEDS: Docusate 100 MG CAP PO SCH (08:07)
[2019-04-22] MEDS: Gabapentin 300 MG CAP PO SCH (08:07)
[2019-04-22] MEDS: Ketoconazole 2% Cream 15 gm Tube TOP SCH (08:08)
[2019-04-22 08:15] LABS: Anion Gap 13 mmol/L (10-20); BUN (Urea Nitrogen) 14 mg/dL (8.4-25.7); Calc. Creatinine Clearance 158 mL/min (70-130); Calcium 9.1 mg/dL (7.8-10.44); Carbon Dioxide 26 mmol/L (23-31); Chloride 105 mmol/L (98-107); Estimated GFR-MDRD Greater than 90; Glucose 177 mg/dL (80-115); Potassium 3.8 mmol/L (3.5-5.1); Sodium 140 mmol/L (136-145)
[2019-04-22] MEDS ORDERED: Enoxaparin Sodium 40 MG/0.4 ML SYRINGE SC SCH (09:00)
[2019-04-22] MEDS: Saccharomyces boulardii 250 MG CAP PO SCH (09:06)
[2019-04-22] MEDS: Divalproex Sodium DR 500 MG TAB PO SCH (09:07)
[2019-04-22] MEDS: Calcium Carbonate 500 MG TAB PO SCH ×2 (09:10→11:57)
[2019-04-22] MEDS ORDERED: Sodium Chloride 0.9% 1,000 ML IV SCH (10:00)
[2019-04-22 10:58] VITALS: BP 149/76; TEMP 98.2
[2019-04-22] MEDS ORDERED: Sulfameth/Trimethoprim DS 800-160mg TAB PO SCH ×2 (12:00→21:00)
--- NOTE | 2019-04-22 14:04 | PRG ---
DATE OF SERVICE: 04/22/2019 SUBJECTIVE: Patient was seen and examined at bedside and overnight events noted. Patient denies any shortness of breath or chest pain or palpitation. No history of nausea or vomiting or diarrhea or fever or chills or cramps. OBJECTIVE: GENERAL: This is a well-built man, in no acute distress. VITAL SIGNS: Temperature 98.2, pulse 98. Respiratory rate 20. Blood pressure 149/76. HEENT: Atraumatic, normocephalic. Oral mucosa is moist NECK: Supple. CARDIOVASCULAR: S1, S2 heard. Rate and rhythm regular. RESPIRATORY: Clear to auscultation. GASTROINTESTINAL: Abdomen is soft. MUSCULOSKELETAL: No tenderness. No edema. DERMATOLOGIC: No skin rash. NEUROLOGIC: Alert and awake and oriented X3. No focal neurologic deficits. Moving all the extremities. PSYCHIATRIC: Mood and affect normal. LABORATORY DATA: Potassium 3.8, BUN is 14, creatinine is 0.8. Lactate is 1.7. ASSESSMENT: 1. Lactic acidosis, back to normal, most likely from infection and volume depletion. We will stop IV fluids. He is also on Ringer's lactate. We will stop IV fluids, give this for one more day. 2. History of dementia. 3. Edema. 4. Hypertension. PLAN: Labs are stable. We will monitor labs for one more day and continue gentle hydration. Stop Ringer's lactate and we will follow. Job ID: [id number]
[2019-04-22 16:11] LABS: Hep C PCR-Quant HCV Not Detected IU/mL (.)
--- NOTE | 2019-04-23 05:19 | DIS ---
DATE OF ADMISSION: 04/19/2019 DATE OF DISCHARGE: 04/22/2019 RESIDENT: Darling Arechiga MD ADMITTING ATTENDING: Jean-Paul Orozco MD DISCHARGE ATTENDING: Zion Reynolds MD CONSULTS: 1. Nephrology, Dr. Mukesh Belcher. 2. Neurosurgery, Jayro Mueller PA-C. PROCEDURES: 1. Abdomen and pelvis CT on 04/18/2019, notable for a new T12 compression deformity which has not extended to posterior endplate, new from 2016 in a similar site with left adrenal mass measuring approximately 3.[address] on 04/19/2019, ventriculomegaly, suspicious for communicating obstructive hydrocephalus such as normal-pressure hydrocephalus. Recommend Neurosurgery consultation on nonemergent basis. 3. Abdomen and pelvis CTA on 04/19/2019, notable for pink small bowel and colonic vasculature with no evidence for mesenteric ischemia. 4. Abdomen MRI on 04/21/2019, was notable for an indeterminate left adrenal mass and may have slightly enlarged compared to the exam from 2016, but does not demonstrate significant loss to suggest the fact containing adrenal adenoma. In order to determine if a lipid-poor adenoma is present, CT per adrenal mass protocol would be necessary with washout images. A follow-up CT in 6 months is recommended to ensure stability. Alternatively, a PET-CT which could be performed to evaluate for hypermetabolic activity in the left adrenal gland. 5. Chest x-ray on 04/21/2019, which showed no acute cardiopulmonary findings. PRIMARY DIAGNOSES: 1. Chronic lactic acidosis of unknown etiology. 2. Sepsis secondary to urinary tract infection. 3. Parkinsonism. SECONDARY DIAGNOSES: 1. Diabetes mellitus type 2. 2. Hypertension. 3. Hyperlipidemia. 4. Dementia. 5. Left adrenal incidentaloma. DISCHARGE MEDICATIONS: 1. Atorvastatin 40 p.o. at bedtime. 2. Lisinopril 20 mg p.o. daily. 3. Florastor 250 mg p.o. daily. 4. Nifedipine 30 mg p.o. daily. 5. Clonidine 0.1 mg p.o. p.r.n. 6. Omeprazole 40 mg p.o. daily. 7. Aspirin 81 mg p.o. daily. 8. Sertraline 100 mg p.o. daily. 9. Magnesium hydroxide 30 mL p.o. daily p.r.n. 10. Calcium carbonate 500 mg p.o. b.i.d. with meals. 11. Memantine 10 mg p.o. b.i.d. 12. Gabapentin 300 mg p.o. b.i.d. 13. Docusate 100 mg p.o. b.i.d. 14. Depakote 500 mg p.o. b.i.d. 15. Furosemide 20 mg p.o. daily. 16. Potassium chloride 8 mEq p.o. daily. 17. Metoprolol succinate 25 mg p.o. daily. 18. Acetaminophen 650 mg p.o. q.4 hours p.r.n. 19. Ketoconazole 1 g topically b.i.d. 20. Bactrim DS one tablet p.o. b.i.d. for 8 days. DISCONTINUED MEDICATIONS: None. HOSPITAL COURSE: The patient is a 63-year-old gentleman with a PMH significant for dementia, type 2 diabetes mellitus, paroxysmal atrial fibrillation, heart failure with preserved ejection fraction, normal pressure hydrocephalus, and hypertension, who presented to the ED from the [facility] due to 1-day of intractable nausea and vomiting. The patient apparently did not respond to multiple doses of Zofran and was unable to keep any food or liquids down and was therefore sent to the ER for further evaluation. On presentation to the ED, he was noted to be quite hypertensive & was treated with IV labetalol but was otherwise afebrile with stable vitals. Routine labs were all at the patient's baseline range with the exception of an elevated lactate level of 4.6. His UA and blood work were all negative for any signs of acute infection as a possible etiology and his procal was low at 0.06. An abdomen and pelvic CT and brain CT were also obtained which were notable for a stable left adrenal incidentaloma and slightly worsened ventriculomegaly secondary to normal-pressure hydrocephalus & a nonemergent Neurosurgical consult was recommended. However, due to the patient's inability to tolerate p.o. and his significantly elevated lactate of unknown etiology he was admitted for close observation and continued IVFs & trending of his lactate levels overnight. The following morning, the patient's lactate increased to 6.0 so an abdomen and pelvis CTA was then performed to rule out mesenteric ischemia as a possible etiology for his lactic acidosis which was within normal limits. It was also noted that his left adrenal mass was actually initially discovered in 2016, and a thorough workup to assess for functionality was obtained which was within normal limits. However, repeat functional studies including renin activity and aldosterone levels as well as dexamethasone suppression test were ordered and performed on day #2 of hospitalization. The dexamethasone suppression test was noted to be within normal limits but the renin and aldosterone serum levels were still pending upon the patient's discharge. An abd/pelvic MRA w/ & w/o contrast was also obtained, per the recs of radiology, to assess for malignancy but was an indeterminate In addition, Nephrology, Dr. Mukesh Belcher, was also consulted due to the elevated lactate and recommended continued IV fluids and trending of his lactate. He also noted that during his prior hospitalization his lactate was similarly elevated at that time. He therefore recommended checking his levels about 2 weeks following his discharge at it was down to 1.7 by the discharge date. Regarding his UTI, on night #2 of hospitalization, the patient fevered up to 100.6F so urine and blood cultures were obtained as well as a urinalysis, which was highly suggestive of a UTI. The following morning the patient was started on IV Rocephin for empiric treatment of suspected UTI and was continued on this through his date of discharge at which time he was transitioned to p.o. Bactrim. By the date of discharge, the patient was tolerating p.o. well, and, as noted above, his lactate level had downtrended significantly. He was therefore cleared for discharge back to the halfway in stable condition with close follow-up with his primary care provider, Dr. Jake Shelby. Regarding his brain CT findings, it was noted in his NH notes that the normal pressure hydrocephalus was a chronic issue. However, due to the slight worsening noted on brain CT, Neurosurgery, Jayro Mueller, was consulted. They reported that they would like to follow up with the patient on an outpatient basis for close monitoring of his normal-pressure hydrocephalus as slight progression over years is expected with this condition. DISPOSITION: Stable. DISCHARGE INSTRUCTIONS: 1. Location: [facility]. 2. Diet: Heart healthy, consistent carb diet. 3. Activity: As tolerated. No restrictions. FOLLOWUP: The patient was instructed to follow up with his PCP, Dr. Jake Shelby, within 1 week of discharge as well as Neurosurgery, Jayro Mueller PA-C, within 3 to 4 weeks of discharge. Job ID: [id number] [facility]
[2019-04-25 14:09] LABS: Renin Activity 0.593 ng/mL/hr (0.167-5.380)
== END 2019-04-22 15:50 | DRG 871 ==
LOC: ERS 21:27 → T4-B 04-19 03:00
PROVIDERS: ADMIT Family Medicine; ATTEND Family Medicine
DX: A41.9 Sepsis, unspecified organism (principal); J96.01 Acute respiratory failure with hypoxia; I50.32 Chronic diastolic (congestive) heart failure; E87.2 Acidosis; G91.2 (Idiopathic) normal pressure hydrocephalus; N39.0 Urinary tract infection, site not specified; F03.90 Unspecified dementia, unspecified severity, without behavioral disturbance, psychotic disturbance, mood disturbance, and anxiety; E11.9 Type 2 diabetes mellitus without complications; I48.0 Paroxysmal atrial fibrillation; I11.0 Hypertensive heart disease with heart failure; E78.5 Hyperlipidemia, unspecified; D64.9 Anemia, unspecified; E66.9 Obesity, unspecified; G20 Parkinson's disease; F31.9 Bipolar disorder, unspecified; E27.9 Disorder of adrenal gland, unspecified; Z79.899 Other long term (current) drug therapy; Z79.82 Long term (current) use of aspirin; Z68.36 Body mass index [BMI] 36.0-36.9, adult; Z79.4 Long term (current) use of insulin
CPT/HCPCS: 36415; 36416; 51701; 70450; 71045; 74174; 74177; 74183; 80048; 80053; 81001; 81003; 82088; 82533; 82550; 82805; 83036; 83605; 83690; 84145; 84244; 84425; 85025; 85379; 86780; 87040; 87077; 87086; 87149; 87186; 87389; 87522; 96361; 96365; 96375; J0360; J0696; J0834; J1200; J1630; J1650; J1815; J2060; J2550; J3490; J8540; Q9966